=== PATIENT | female | born 1945 | race African-American/Black ===

== ENCOUNTER 2018-08-07 21:59 | Inpatient (IN) | payer OTHER ==
[~2018-08-07] VITALS: Ht 154.9 cm; Wt 122.6 kg
[~2018-08-07 21:59] MED LIST: CLON0.1T PO; FURO20TA4 PO; HYDR-4001 PO; LOSA100T3 PO; METO100T16 PO; NIFE-1 PO; POTA20TA82 PO; PRED1TAB PO; TRAM50TA3 PO
[2018-08-08] VITALS (9 sets, daily range): BP systolic 117–165; BP diastolic 39–81
[2018-08-08] MEDS ORDERED: ONDANSETRON HCL 4MG/2ML INJ IV STA (00:10)
[2018-08-08] MEDS ORDERED: FAMOTIDINE 20MG/2ML VIAL IV STA (00:10)
[2018-08-08] MEDS ORDERED: SODIUM CHLORIDE 0.9% 1,000 ML IV ONE (00:10)
[2018-08-08 01:24] LABS: BASOPHILS % 0.5 % (0.0-2.0); EOSINOPHILS % 0.5 % (0.0-5.0); HEMATOCRIT. 27.1 % (36.0-48.0); HEMOGLOBIN. 8.8 g/dL (12.0-16.0); LYMPHOCYTES % 18.6 % (20.0-50.0); MEAN CORPUSCULAR HEMOGLOBIN 31.8 pg (28.0-32.0); MEAN CORPUSCULAR VOLUME 97.4 fL (81.0-99.0); MEAN PLATELET VOLUME 7.7 fl (7.4-10.4); MONOCYTES % 8.2 % (2.0-8.0); NEUTROPHILS % 72.2 % (40.0-76.0); PLATELET 213 x1000/uL (130-400); RED BLOOD CELL COUNT 2.78 mill/uL (4.2-5.4); RED CELL DISTRIBUTION WIDTH 14.1 % (11.6-14.6)
[2018-08-08 01:29] LABS: PROTHROMBIN TIME 10.4 sec (9.1-11.1)
[2018-08-08 01:34] LABS: CHLORIDE 108 mEq/L (98-107)
[2018-08-08] MEDS ORDERED: SODIUM CHLORIDE 0.9% 1,000 ML IV SCH (01:36)
[2018-08-08 04:23] LABS: CLARITY URINE CLOUDY (CLEAR); COLOR URINE YELLOW (YELLOW); KETONES URINE NEGATIVE (NEGATIVE); LEUKOCYTE ESTERASE URINE TRACE (NEGATIVE); NITRITE URINE NEGATIVE (NEGATIVE); OCCULT BLOOD URINE NEGATIVE (NEGATIVE); PROTEIN URINE TRACE (NEGATIVE)
[2018-08-08] MEDS ORDERED: DEXT 5%/0.9% NACL 1,000 ML IV SCH (06:45)
[2018-08-08] MEDS: PANTOPRAZOLE SODIUM 40 MG/VIAL IV SCH (08:39)
[2018-08-08 09:42] LABS: HEMOGLOBIN 7.6 g/dL (12.0-16.0)
[2018-08-08] MEDS: LOSARTAN POTASSIUM 50 MG TABLET PO SCH (12:00)
[2018-08-08 12:45] LABS: HEMATOCRIT 23.1 % (36.0-48.0); HEMOGLOBIN 7.6 g/dL (12.0-16.0); MEAN CORPUSCULAR HEMOGLOBIN 32.1 pg (28.0-32.0); MEAN CORPUSCULAR VOLUME 97.9 fL (81.0-99.0); PLATELET 186 x1000/uL (130-400); RED BLOOD CELL COUNT 2.36 mill/uL (4.2-5.4); RED CELL DISTRIBUTION WIDTH 14.3 % (11.6-14.6)
[2018-08-08] MEDS: TRAMADOL 50MG TABLET PO PRN (12:54)
[2018-08-08] MEDS: NIFEDIPINE XL 30MG TAB PO SCH (13:04)
[2018-08-08] MEDS: MORPHINE SULFATE 4 MG/ML CPJ (NOT FOR IM USE) IV PRN (17:44)
[2018-08-08 17:56] LABS: TOTAL IRON BINDING CAPACITY 329 ug/dL (250-450)
[2018-08-08 18:03] LABS: HEMOGLOBIN 7.7 g/dL (12.0-16.0); MEAN CORPUSCULAR HEMOGLOBIN 32.1 pg (28.0-32.0); MEAN CORPUSCULAR VOLUME 99.4 fL (81.0-99.0); PLATELET 180 x1000/uL (130-400); RED BLOOD CELL COUNT 2.41 mill/uL (4.2-5.4); RED CELL DISTRIBUTION WIDTH 14.4 % (11.6-14.6)
[2018-08-08 19:03] LABS: FOLIC ACID (FOLATE) SERUM 13.3 ng/mL (>5.38)
[2018-08-09] VITALS (22 sets, daily range): BP systolic 12–161; BP diastolic 31–86
[2018-08-09] LABS: HEMOGLOBIN 7.7 g/dL (12.0-16.0)
[2018-08-09] MEDS: PANTOPRAZOLE SODIUM 40 MG/VIAL IV SCH (08:24)
[2018-08-09] MEDS: LOSARTAN POTASSIUM 50 MG TABLET PO SCH (08:26)
[2018-08-09] MEDS: ASCORBIC ACID 500 MG TABLET PO SCH ×3 (08:26→18:01)
[2018-08-09] MEDS: FERROUS SULFATE 325MG TABLET PO SCH ×3 (08:26→18:01)
[2018-08-09] MEDS: NIFEDIPINE XL 30MG TAB PO SCH (08:26)
[2018-08-09] MEDS: TRAMADOL 50MG TABLET PO PRN (09:23)
[2018-08-09] MEDS: PANTOPRAZOLE 40MG DR TABLET PO SCH (13:17)
[2018-08-09] MEDS ORDERED: LIDOCAINE HCL 1% 20ML VIAL (Pyxis) INJ ONE (13:25)
[2018-08-09] MEDS ORDERED: SODIUM BICARBONATE 4% (2.4MEQ) 5ML VIAL IV ONE (13:25)
[2018-08-09 16:05] LABS: MEAN CORPUSCULAR HEMOGLOBIN 32.6 pg (28.0-32.0); MEAN CORPUSCULAR VOLUME 99.5 fL (81.0-99.0); PLATELET 110 x1000/uL (130-400); RED BLOOD CELL COUNT 2.03 mill/uL (4.2-5.4); RED CELL DISTRIBUTION WIDTH 14.4 % (11.6-14.6)
[2018-08-09 16:10] LABS: HEMATOCRIT 20.2 % (36.0-48.0); HEMOGLOBIN 6.6 g/dL (12.0-16.0)
[2018-08-09] MEDS: IRON SUCROSE COMPLEX 100 MG/5 ML ML IV SCH (16:40)
[2018-08-09] MEDS ORDERED: POLYETHYLENE GLYCOL 3350 (17GM) 1 DOSE PACK PO PRN (18:03)
[2018-08-09] MEDS: MORPHINE SULFATE 4 MG/ML CPJ (NOT FOR IM USE) IV PRN (20:13)
[2018-08-09] MEDS: LOSARTAN POTASSIUM 100 MG TABLET PO SCH (20:13)
[2018-08-10] VITALS (13 sets, daily range): BP systolic 105–157; BP diastolic 61–90
[2018-08-10] MEDS: PANTOPRAZOLE 40MG DR TABLET PO SCH (06:40)
[2018-08-10] MEDS: MORPHINE SULFATE 4 MG/ML CPJ (NOT FOR IM USE) IV PRN (06:48)
[2018-08-10 07:59] LABS: BASOPHILS % 0.2 % (0.0-2.0); EOSINOPHILS % 1.1 % (0.0-5.0); HEMATOCRIT. 25.2 % (36.0-48.0); HEMOGLOBIN. 8.6 g/dL (12.0-16.0); LYMPHOCYTES % 11.4 % (20.0-50.0); MEAN CORPUSCULAR HEMOGLOBIN 31.8 pg (28.0-32.0); MEAN CORPUSCULAR VOLUME 93.7 fL (81.0-99.0); MEAN PLATELET VOLUME 7.9 fl (7.4-10.4); MONOCYTES % 8.1 % (2.0-8.0); NEUTROPHILS % 79.2 % (40.0-76.0); PLATELET 175 x1000/uL (130-400); RED BLOOD CELL COUNT 2.69 mill/uL (4.2-5.4); RED CELL DISTRIBUTION WIDTH 16.9 % (11.6-14.6)
[2018-08-10] MEDS: IRON SUCROSE COMPLEX 100 MG/5 ML ML IV SCH (08:59)
[2018-08-10] MEDS: LOSARTAN POTASSIUM 100 MG TABLET PO SCH (09:00)
[2018-08-10] MEDS: FERROUS SULFATE 325MG TABLET PO SCH ×2 (09:00→14:35)
[2018-08-10] MEDS ORDERED: NIFEDIPINE XL 60MG TAB PO SCH (09:00)
[2018-08-10] MEDS: ASCORBIC ACID 500 MG TABLET PO SCH ×2 (09:00→14:35)
== END 2018-08-10 18:36 | disposition home or self-care (01) | DRG 393 ==
LOC: ER 21:59 → EDBEDREQ 08-08 01:38 → EDBEDREQTM 08-08 01:38 → 3WST 08-08 01:38 → ENRESERV 08-08 02:42
PROVIDERS: ADMIT Internal Medicine Nephrology; ATTEND Internal Medicine Critical Care Medicine
PROC: 05HY33Z Insertion of Infusion Device into Upper Vein, Percutaneous Approach (ICD-10-PCS; principal; 2018-08-09)
PROC: B54MZZA Ultrasonography of Right Upper Extremity Veins, Guidance (ICD-10-PCS; 2018-08-09)
PROC: 30233N1 Transfusion of Nonautologous Red Blood Cells into Peripheral Vein, Percutaneous Approach (ICD-10-PCS; 2018-08-09)
DX: K64.8 Other hemorrhoids (principal); K57.91 Diverticulosis of intestine, part unspecified, without perforation or abscess with bleeding; I13.0 Hypertensive heart and chronic kidney disease with heart failure and stage 1 through stage 4 chronic kidney disease, or unspecified chronic kidney disease; D62 Acute posthemorrhagic anemia; J98.11 Atelectasis; E11.22 Type 2 diabetes mellitus with diabetic chronic kidney disease; E61.1 Iron deficiency; I50.9 Heart failure, unspecified; K57.90 Diverticulosis of intestine, part unspecified, without perforation or abscess without bleeding; N20.0 Calculus of kidney; N18.3 Chronic kidney disease, stage 3 (moderate); Z82.49 Family history of ischemic heart disease and other diseases of the circulatory system; Z87.19 Personal history of other diseases of the digestive system; Z87.442 Personal history of urinary calculi; Z90.49 Acquired absence of other specified parts of digestive tract; Z90.710 Acquired absence of both cervix and uterus; Z79.899 Other long term (current) drug therapy
CPT/HCPCS: 36415; 36569; 51702; 71045; 74176; 76937; 80048; 82607; 82728; 82746; 83540; 83550; 83605; 85014; 85018; 85027; 86850; 86900; 86920; 93005; 93970; 96361; 96374; 96375; 99291; A6261; C1725; C9113; J2270; J2405; J3490; J7030; J7042; J7050; P9016; A4315